=== PATIENT | female | born 1945 | race Two or more races ===

== ENCOUNTER 2017-01-08 10:00 | Outpatient (RCR) | payer OTHER | END 2017-01-27 | disposition home or self-care (01) | LOC: PTY 10:00 | DX: M85.80 Other specified disorders of bone density and structure, unspecified site (principal); Z94.1 Heart transplant status; M41.85 Other forms of scoliosis, thoracolumbar region ==

== ENCOUNTER 2017-02-13 10:30 | Outpatient (RCR) | payer OTHER | END 2017-02-27 | disposition home or self-care (01) | LOC: PTY 10:30 | DX: M85.80 Other specified disorders of bone density and structure, unspecified site (principal); Z94.1 Heart transplant status; M41.85 Other forms of scoliosis, thoracolumbar region ==